=== PATIENT | female | born 2005 | race Caucasian/White ===

== ENCOUNTER 2024-01-12 22:01 | Emergency (ER) | payer OTHER, SELFPAY ==
[2024-01-12 22:03] VITALS: BP 146/86
--- NOTE | 2024-01-12 22:22 | ED.GENMED ---
History of Present Illness
General
Chief Complaint: Flank Pain
Source: patient
Exam Limitations: none
Time Seen by Provider: 01/12/24 22:10
Travel History
Have you had any contact with someone who has COVID-19?: No
Do you have any symptoms of coronavirus? Fever > 100 degrees, chills, cough, shortness of breath, sore throat, loss of taste or smell, muscle aches, or headache?: No
History of Present Illness
History of Present Illness:
See MDM
Past History
Past History
ED Past Medical History: None
ED Past Surgical History: Other (Myringotomy tubes)
Social History
Tobacco: Non-smoker
Alcohol: None
Phy Exam
Physical Exam
Physical Exam:
See MDM
Course
Orders/Labs/Results
Orders:
Orders
01/12/24 22:20
HCG, Urine Qualitative Screen Urgent
Date Specimen was Collected: 01/12/24
Time Specimen was Collected: 22:19
Urine Culture Reflexed from UA [Urinalysis Reflex To Culture] Urgent
Date Specimen was Collected: 01/12/24
Time Specimen was Collected: 22:19
Urine Microscopic Reflex Cult Urgent
01/12/24 22:23
Add On- LAB Urgent
Tests Added?: Urine HCG
Iohexol [Omnipaque] See Protocol PO NOW STA
Ketorolac [Toradol] 30 mg IM NOW STA
01/12/24 22:24
Ondansetron Orally Disint [Zofran Odt (Orally Disintegrating)] 4 mg PO NOW STA
01/12/24 22:25
CT Abd/pel Without Iv Or Oral Urgent
Comment:
Reason For Exam: R flank pain
Ondansetron Orally Disint [Zofran Odt (Orally Disintegrating)] 4 mg .ROUTE .[facility]
Abnormal Lab Results
01/12/24
22:20
Ur Occult Blood Reflex 1+ A
(Negative)
Urine RBC 16-20 A /HPF
(0-2)
Urine Bacteria (Reflex) Few A
(Negative)
Vital Signs
Initial and Last Documented VS:
Initial Vital Signs
Temp Pulse Resp BP Pulse Ox
97.8 F 86 18 146/86 100
01/12/24 22:03 01/12/24 22:03 01/12/24 22:03 01/12/24 22:03 01/12/24 22:03
Last Documented Vital Signs
Temp Pulse Resp BP Pulse Ox
97.8 F 86 18 146/86 100
01/12/24 22:03 01/12/24 22:03 01/12/24 22:03 01/12/24 22:03 01/12/24 22:03
MDM/Problems Addressed
Differential Diagnosis Includes:
HPI and MDM Narrative:
18-year-old female presenting with right flank pain. Symptoms occurred suddenly. Patient does have a history of kidney stones and feels this is another kidney stone. This is associate with mild nausea. She denies hematuria.
Will give dose of IM Toradol and Zofran ODT and obtain CT and urinalysis
Physical exam
General: Well appearing and non-toxic
HEENT: protecting airway
Neck: appears supple
CV: No evidence of cyanosis
Resp: No accessory muscle use
Abd: Non-distended. No significant tenderness noted. No CVA tenderness
Extremities: No deformities
Neuro: alert
Psych: Normal affect
Skin: Intact
Problems Addressed including Acute and Chronic Conditions affecting care:
1. Right flank pain
Acuity: acute
Prognosis: stable
Details: Given her history and the current pain, will obtain CT looking for kidney stones
Updates
CT shows evidence of passed kidney stone. Patient is feeling much better and feels comfortable going home
Differential Diagnosis (but not limited to): Pyelonephritis, kidney stone
Testing considered: Blood work
Drug therapy (if applicable): OTC meds, please see d/c instruction regarding Rx drugs
Amount and/or Complexity of Data Reviewed
Clinical info obtained from: Patient
External data reviewed: N/A
Labs I independently reviewed (but not limited to): Expected hematuria
Radiology: N/A
Pulse Ox: not hypoxic
EKG independently reviewed: N/A
Vp [employer]: N/A
Critical Care: N/A
Risk of Complication:
Social Determinants of health: Good social support
Discussed with other providers: N/A
Escalation of Care includes Admit/Obs: After being observed in the Emergency Department, pt stable for discharge.
Occasional wrong word or 'sound a like' substitutions may have occurred due to the inherent limitations of voice recognition software. Read the chart carefully and recognize, using context, where substitutions have occurred.
*Critical Care Note
Total Time (30-74mins, 75-104mins- exclusive of procedures): Not Applicable
ED Attending Note
-
Portions of this chart may have been created with voice recognition software.� Occasional wrong word or��sound alike� substitutions may have occurred due to the inherent limitations of voice recognition software.
Discharge Plan
Departure
Patient Disposition: Home (Routine Discharge)
Date of Disposition: 01/13/24
Time of Disposition: 00:20
Patient with high blood pressure during this ER visit?: Yes
Discharge Problem:
Kidney stone
Instructions: Flank Pain (DC), BLOOD PRESSURE
Prescriptions:
No Action
acetaminophen [Tylenol] 325 mg Tablet
325 mg PO DAILYPRN PRN (Reason: mild pain)
oxycodone-acetaminophen [Percocet] 5-325 mg tablet
1 tab PO Q6HPRN PRN (Reason: pain) Qty: 10 0RF
naproxen 500 mg tablet
500 mg PO BID PRN (Reason: Pain) Qty: 15 0RF
Referrals:
Maria Luisa Flores MD [Family Provider] -
Activity Restrictions/Additional Instructions:
The CT shows that you likely passed your kidney stone. Please return for worsening symptoms.
Interventions
Interventions:
*Risk Screen - Suicide Last Done: 01/12/24 22:03
*General Assessment Last Done: 01/12/24 22:09
*Neglect/Abuse Screening Last Done: 01/12/24 22:03
ED- Fall Risk Assessment Last Done: 01/12/24 22:09
*ED COVID-19 Vaccine History Last Done: 01/12/24 22:09
AW-Zdrbsh-Jfvcenwsbn Assessment Last Done: 01/12/24 22:09
ED-Female Genitourinary Assessment Last Done: 01/12/24 22:09
[2024-01-12 22:27] LABS: Urine Albumin Negative (Neg - Trace); Urine Bilirubin Negative (Negative); Urine Character Clear (Clear); Urine Color Yellow; Urine Glucose Negative (Negative); Urine Ketone Negative (Negative); Urine Leukocyte Negative (Negative); Urine Nitrite Negative (Negative); Urine Occult Blood 1+ (Negative); Urine Urobilinogen Negative (Neg - 1+)
[2024-01-12] MEDS: ZOFRAN ODT (ORALLY DISINTEGRATING) 4 MG PO (22:27)
[2024-01-12] MEDS: TORADOL 30 MG IM (22:27)
[2024-01-12 22:39] LABS: HCG, Urine Qualitative Screen Negative
[2024-01-12 22:48] LABS: Urine Bacteria Few (Negative); Urine Red Blood Cell 16-20 /HPF (0-2); Urine White Cell 0-2 /HPF (0-5)
[2024-01-12 22:59] VITALS: BP 128/75; BMI 20.4
[2024-01-13 00:24] VITALS: BP 123/74
== END 2024-01-13 00:28 | disposition home or self-care (01) ==
LOC: EMR 22:01
PROVIDERS: EMERGENCY PHYSICIAN Student in an Organized Health Care Education/Training Program; FAMILY PHYSICIAN Family Medicine
DX: N20.0 Calculus of kidney (principal); R03.0 Elevated blood-pressure reading, without diagnosis of hypertension; Z87.442 Personal history of urinary calculi
CPT/HCPCS: 99284; 96372; 74176; 81003; 81015; 81025

== ENCOUNTER → 2024-12-09 07:01 | Outpatient (REF) | payer OTHER, SELFPAY | LOC: RSP 07:01 | PROVIDERS: ATTENDING PHYSICIAN Family Medicine | DX: R05.3 Chronic cough (principal); Z82.5 Family history of asthma and other chronic lower respiratory diseases; J45.909 Unspecified asthma, uncomplicated | CPT/HCPCS: 94060 ==

== ENCOUNTER 2025-01-09 18:25 | Emergency (ER) | payer OTHER, SELFPAY ==
[2025-01-09 18:31] VITALS: BP 173/93
--- NOTE | 2025-01-09 19:54 | ED.GENMED ---
History of Present Illness
General
Chief Complaint: Flank Pain
Source: patient
Exam Limitations: none
Time Seen by Provider: 01/09/25 19:28
History of Present Illness
History of Present Illness:
19yoF with a history of kidney stones presenting with her significant other for evaluation of right flank pain. Pain has been intermittent for 2 days ago and became constant today. Pain is non-radiating. Symptoms feel similar to her previous
kidney stones. She has not taken anything OTC for her symptoms. She currently rates her pain as a 3/10 in severity. She had some nausea earlier today but denies any vomiting. She is otherwise asymptomatic and denies any fevers, chills, dysuria,
diarrhea, constipation.
Past History
Past History
ED Past Medical History: None
ED Past Surgical History: Other (Myringotomy tubes)
Social History
Tobacco: Non-smoker
Alcohol: None
Phy Exam
General Physical Exam
General Presentation: well appearing and no apparent distress
General age: appears stated age
General Skin: warm and dry
General Habitus: normal
General Mental: alert
ENT Exam
ENT Exam: normocephalic
Cardiovascular Exam
Cardiovascular Exam: regular rate/rhythm
Pulmonary Exam
Pulmonary Exam: lungs clear, no respiratory distress, no rales, no crackles and no rhonchi
Gastrointestinal Exam
Gastrointestinal Exam: non tender, soft, non distended and no cva tenderness
Neurological Exam
Neurological Exam: alert
Ty Coma Scale
Eye Opening: Spontaneous
Verbal Response: Oriented
Motor Response: Obeys Commands
GCS Total Score: 15
Skin Exam
Skin Exam: normal color and warm/dry
Psychiatric Exam
Psychiatric Exam: normal mood/affect
Course
Orders/Labs/Results
Orders:
Orders
01/09/25 19:31
Test Result ONCE
01/09/25 19:53
CT Abd/pel Without Iv Or Oral Urgent
Comment:
Reason For Exam: R flank pain
0.9% Sodium Chloride 1000 ml [Nss] 1,000 ml IV BOLUS
01/09/25 20:10
Urinalysis Reflex To Culture Urgent
Date Specimen was Collected: 01/09/25
Time Specimen was Collected: 19:00
Urine Microscopic Reflex Cult Urgent
01/09/25 20:16
Complete Blood Count/With Diff Urgent
Comprehensive Metabolic Panel Urgent
HCG, Serum Qualitative Screen Urgent
01/09/25 21:45
Ketorolac [Toradol] 15 mg IV NOW STA
Abnormal Lab Results
01/09/25 01/09/25
20:10 20:16
RBC 4.10 L 10^6/uL
(4.20-5.40)
Hgb 11.2 L g/dL
(12.0-16.0)
Hct 33.8 L %
(37.0-47.0)
RDW 14.6 H %
(11.5-14.5)
Sodium 134 L mmol/L
(135-145)
Urine Ketones 3+ A
(Negative)
Ur Occult Blood Reflex 4+ A
(Negative)
Urine RBC 3-6 A /HPF
(0-2)
Urine Albumin (Reflex) 2+ A
(Neg - Trace)
01/09/25 20:16
01/09/25 20:16
Vital Signs
Initial and Last Documented VS:
Initial Vital Signs
Temp Pulse Resp BP Pulse Ox
98.7 F 96 18 173/93 97
01/09/25 18:31 01/09/25 18:31 01/09/25 18:31 01/09/25 18:31 01/09/25 18:31
Last Documented Vital Signs
Temp Pulse Resp BP Pulse Ox
97.7 F 82 17 117/89 99
01/09/25 20:29 01/09/25 20:29 01/09/25 20:29 01/09/25 20:29 01/09/25 20:29
MDM/Problems Addressed
Differential Diagnosis Includes:
19yoF here with R flank pain x 2 days. Hx of kidney stones. No f/c, vomiting, or urinary symptoms. She is hypertensive in triage with otherwise normal vital signs. She is well-appearing in no acute distress. No abdominal or CVA tenderness on
exam. Differential diagnosis includes but is not limited to: Kidney stone, UTI, pyelonephritis, musculoskeletal pain, biliary colic
Initial ED plan: Check CBC, CMP, hCG, UA, and CT abdomen without contrast. IV fluid bolus.
*Critical Care Note
Total Time (30-74mins, 75-104mins- exclusive of procedures): Not Applicable
Update Note
Update Note:
Labs overall unremarkable including normal white count and renal function. UA with 4+ blood without signs of infection. CT does not show any ureterolithiasis or hydronephrosis. 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 ?passed
stone given hematuria. No indication for hospitalization. She was advised to follow-up with urology and ED return precautions discussed. Patient in agreement with plan and was discharged in stable condition.
ED Attending Note
-
Portions of this chart may have been created with voice recognition software.� Occasional wrong word or��sound alike� substitutions may have occurred due to the inherent limitations of voice recognition software.
Discharge Plan
Departure
Patient Disposition: Home (Routine Discharge)
Date of Disposition: 01/09/25
Time of Disposition: 21:45
Patient with high blood pressure during this ER visit?: No
Discharge Problem:
Right flank pain
Instructions: Flank Pain (DC)
Prescriptions:
No Action
No Current Medications
0
Referrals:
Scot Epstein MD [Active] -
Maria Luisa Flores MD [Family Provider] -
Activity Restrictions/Additional Instructions:
Drink plenty of fluids and hydrate. Take Tylenol and ibuprofen as needed for pain.
Please follow-up with urology. Return to the ER with any new or worsening symptoms.
Interventions
Interventions:
*Risk Screen - Suicide Last Done: 01/09/25 18:31
*General Assessment Last Done: 01/09/25 18:31
*Neglect/Abuse Screening Last Done: 01/09/25 18:31
*ED- Fall Risk Assessment Last Done: 01/09/25 20:09
*ED COVID-19 Vaccine History Last Done: 01/09/25 20:09
BM-Srkhdk-Anfapuirio Assessment Last Done: 01/09/25 20:21
ED-Female Genitourinary Assessment Last Done: 01/09/25 20:21
Discharge Date and Time
Print Language: MALTESE
--- NOTE | 2025-01-09 20:08 | EDRN ---
Urinalysis and blood work ordered in triage - none of these were collected in triage.
[2025-01-09 20:09] VITALS: BMI 21.2
[2025-01-09] MEDS: NSS 1000 IV (20:16)
[2025-01-09 20:24] LABS: Urine Albumin 2+ (Neg - Trace); Urine Bilirubin Negative (Negative); Urine Character Clear (Clear); Urine Color Yellow; Urine Glucose Negative (Negative); Urine Ketone 3+ (Negative); Urine Leukocyte Negative (Negative); Urine Nitrite Negative (Negative); Urine Occult Blood 4+ (Negative); Urine Urobilinogen Negative (Neg - 1+)
--- NOTE | 2025-01-09 20:25 | EDRN ---
Pt has had RLQ abdominal pain since Sunday that is constant and feels like pain she had with kidney stone which prompted this ED visit. Pt has nausea earlier today but it went away and has not returned. Normal BM today. Pt denies cp, sob,
vomiting, diarrhea, constipation, urinary symptoms. Pt did not take anything for pain at home.
[2025-01-09 20:29] VITALS: BP 117/89
[2025-01-09 20:29] LABS: % Basophils 0.4 % (0-2); % Eosinophils 1.5 % (0-6); % Immature Granulocytes 0.2 % (0-0.5); % Lymphocytes 30.7 % (20.5-51.1); % Monocytes 6.5 % (1.7-9.3); % Neutrophils 60.7 % (42.2-75.2); Absolute Eosinophils 0.1 10^3/uL (0-0.7); Absolute Lymphocytes 2.5 10^3/uL (1.2-3.4); Absolute Monocytes 0.5 10^3/uL (0.1-0.6); Hematocrit 33.8 % (37.0-47.0); Hemoglobin 11.2 g/dL (12.0-16.0); Mean Corp Hgb Conc. 33.1 g/dL (33.0-37.0); Mean Corpuscular Hgb 27.3 pg (27.0-31.0); Mean Corpuscular Volume 82.4 fL (81.0-99.0); Mean Platelet Volume 9.4 fL (7.4-10.4); Nucleated Red Blood Cells % 0 %; Platelet Count 369 10^3/uL (130-400); Red Cell Dist. Width 14.6 % (11.5-14.5); White Blood Cell Count 8.3 10^3/uL (4.8-10.8)
[2025-01-09 20:35] LABS: HCG, Serum Qualitative Screen Negative
[2025-01-09 20:40] LABS: ALT (SGPT) 13 U/L (0-35); AST (SGOT) 18 U/L (14-36); Albumin 4.8 g/dl (3.5-5.0); Alkaline Phosphatase 66 U/L (38-126); Blood Urea Nitrogen 16 mg/dl (7-17); Calcium 9.1 mg/dl (8.4-10.2); Carbon Dioxide 22 mmol/L (22-30); Chloride 103 mmol/L (98-107); Estimated Creatinine Clearance 118 ml/min; Glucose 91 mg/dl (70-99); Potassium 3.7 mmol/L (3.5-5.1); Sodium 134 mmol/L (135-145); Total Bilirubin 0.4 mg/dl (0.2-1.3); eGFR > 60.00
[2025-01-09 20:42] LABS: Urine White Cell None Seen /HPF (0-5)
[2025-01-09] MEDS: TORADOL 15 MG IV (21:53)
[2025-01-09 21:56] VITALS: BP 110/64
== END 2025-01-09 22:03 | disposition home or self-care (01) ==
LOC: EMR 18:25
PROVIDERS: Emergency Medicine; EMERGENCY PHYSICIAN Emergency Medicine; FAMILY PHYSICIAN Family Medicine
DX: R10.9 Unspecified abdominal pain (principal); Z87.442 Personal history of urinary calculi
CPT/HCPCS: 99284; 96374; 96361; 74176; 80053; 81003; 81015; 84703; 85025

== ENCOUNTER → 2025-05-18 15:41 | Outpatient (REF) | payer OTHER, SELFPAY | LOC: RCS 15:41 | PROVIDERS: ATTENDING PHYSICIAN Physician Assistant; FAMILY PHYSICIAN Family Medicine | DX: R01.1 Cardiac murmur, unspecified (principal) | CPT/HCPCS: 93306 ==